=== PATIENT | female | born 1995 | race Two or more races ===

== ENCOUNTER 2023-12-20 00:26 | Emergency (ER) | payer BC, OTHER ==
[~2023-12-20] VITALS: Ht 165.1 cm; Wt 140.0 kg
[2023-12-20] MEDS: PROCHLORPERAZINE EDISYLATE 5 MG/ML 2ML VIAL IM ONE (01:15)
[2023-12-20] MEDS: diphenhdrAMINE HCL 50 MG/1 ML VL IM ONE (02:32)
[2023-12-20] MEDS: KETOROLAC TROMETH 60MG/2ML VIAL IM ONE (02:35)
[2023-12-20] MEDS: DexAMETHasone SOD PHOS 10MG/1ML VIAL INJ IM ONE (02:36)
[2023-12-20 02:47] VITALS: BP 150/95; PULSE 95; RESP 14; TEMP 98; O2SAT 99
== END 2023-12-20 02:47 | disposition home or self-care (01) ==
LOC: ER 00:26
DX: G43.909 Migraine, unspecified, not intractable, without status migrainosus (principal)
CPT/HCPCS: 96372; 99284; J0780; J1100; J1200; J1885